=== PATIENT | male | born 1955 | race Two or more races ===

== ENCOUNTER 2023-10-17 12:40 | Emergency (ER) | payer OTHER ==
[~2023-10-17] VITALS: Ht 162.6 cm; Wt 95.3 kg
[2023-10-17] MEDS ORDERED: VAZALORE81 MG PO (13:29)
[2023-10-17] MEDS ORDERED: SYNTHROID125 MCG PO (13:29)
== END 2023-10-17 20:17 | disposition home or self-care (01) ==
LOC: ER 12:40
DX: S22.32XA Fracture of one rib, left side, initial encounter for closed fracture (principal); W14.XXXA Fall from tree, initial encounter; Y93.9 Activity, unspecified; Y92.9 Unspecified place or not applicable; Y99.9 Unspecified external cause status